=== PATIENT | female | born 1980 | race African-American/Black ===

== ENCOUNTER 2023-03-16 08:35 | Emergency (ER) | payer OTHER, SELFPAY ==
[2023-03-16 08:39] VITALS: BP 180/102; PULSE 84; RESP 18; TEMP 36.7; O2SAT 98; BMI 24.8
--- NOTE | 2023-03-16 08:47 | ECG_ITS ---
[facility] Test Date: 2023-03-16 Pat Name: DANIELA HART Department: Room: - Gender: Female [employer]: : 1980 Requested By: LOR CARRENO Order Number: [id number] Reading MD: MELVIN MANZANO Measurements Intervals [place] Rate: 95 P: 49 WI: 138 QRS: 35 QRSD: 78 T: 54 QT: 366 QTc: 418 Interpretive Statements 1100 Sinus rhythm 0102 ARTIFACT PRESENT 9150 abnormal ECG No previous ECG available for comparison Electronically Signed On 03-17-2023 7:13:52 EDT by MELVIN MANZANO
--- NOTE | 2023-03-16 08:50 | ED.GENADUL1 ---
HPI - General Adult General Chief complaint: Recheck/Abnormal Lab/Rx Stated complaint: RECHECK HCT & HGB- POSS. TRANSFUSION/MOUTH PAIN Time Seen by Provider: 03/16/23 08:39 Source: patient Mode of arrival: walk-in History of Present Illness HPI narrative: 43-year-old female presents for low blood count. She had her blood count checked two days ago and it was 6.9 and she comes in today to be assessed. She has a history of anemia and had Blood transfusion about two months ago. It's been due to heavy uterine bleeding, fibroids. She had been recommended to have surgical procedure but didn't get it done because of alcoholism and she's in an alcohol treatment center now. She is not dizzy or lightheaded but feels that she looks a little bit pale. Related Data Home Medications Medication Instructions Recorded Confirmed chlordiazepoxide HCl 25 mg capsule 25 mg PO Q12H 03/16/23 03/16/23 cyclobenzaprine 5 mg tablet 5 mg PO Q12H 03/16/23 03/16/23 dicyclomine 10 mg capsule 10 mg PO DAILY 03/16/23 03/16/23 folic acid 1 mg tablet 1 mg PO DAILY 03/16/23 03/16/23 hydroxyzine pamoate 25 mg capsule 25 mg PO Q8H PRN itching 03/16/23 03/16/23 levetiracetam 250 mg tablet 250 mg PO Q12H 03/16/23 03/16/23 levetiracetam 500 mg tablet 500 mg PO Q12H 03/16/23 03/16/23 nicotine (polacrilex) 4 mg gum 4 mg PO Q8H PRN nicotine cravings 03/16/23 03/16/23 omeprazole 20 mg capsule,delayed 20 mg PO DAILY 03/16/23 03/16/23 release ondansetron 8 mg disintegrating 8 mg PO Q8H PRN nausea and vomiting 03/16/23 03/16/23 tablet prazosin 1 mg capsule 1 mg PO .HS PRN PTSD 03/16/23 03/16/23 Previous Rx's Medication Instructions Recorded ferrous sulfate 325 mg (65 mg 325 mg PO BID #60 tabs 03/16/23 iron) tablet (Feosol) penicillin V potassium 250 mg 250 mg PO QID 10 days #40 tabs 03/16/23 tablet Allergies Allergy/AdvReac Type Severity Reaction Status Date / Time No Known Drug Allergies Allergy Verified 03/16/23 08:44 Review of Systems ROS Narrative Nurses note and vital signs reviewed and patient is not hypoxic. General: The patient appears well and in no apparent distress. Patient is resting comfortably on cart. Skin: Warm, dry. There is no rash noted. Head: Normocephalic, atraumatic Eye: Normal conjunctiva, no drainage, conjunctiva pale Ears, Nose, Mouth, and Throat: oral mucosa is moist. Nares patent. Cardiovascular: Regular Rate and Rhythm Respiratory: Patient is in no distress, no accessory muscle use, lungs are clear to auscultation, no wheezing, rales or rhonchi Back: non-tender GI: soft and nontender Musculoskeletal: The patient has no evidence of calf tenderness, no pitting edema, symmetrical pulses noted bilaterally Neurological: A&O, normal speech Psychiatric: Cooperative Exam Constitutional Vital Signs, click to edit/add: Last Vital Signs Temp 98.1 F 03/16/23 08:39 Pulse 84 03/16/23 08:39 Resp 18 03/16/23 08:39 BP 180/102 H 03/16/23 08:39 Pulse Ox 98 03/16/23 08:39 O2 Del Method Room Air 03/16/23 08:39 Course Vital Signs Vital signs: Vital Signs Temperature 98.1 F 03/16/23 08:39 Pulse Rate 84 03/16/23 08:39 Respiratory Rate 18 03/16/23 08:39 Blood Pressure 180/102 H 03/16/23 08:39 Pulse Oximetry 98 03/16/23 08:39 Oxygen Delivery Method Room Air 03/16/23 08:39 Temperature 98.1 F 03/16/23 08:39 Pulse Rate 84 03/16/23 08:39 Respiratory Rate 18 03/16/23 08:39 Blood Pressure 180/102 H 03/16/23 08:39 Pulse Oximetry 98 03/16/23 08:39 Oxygen Delivery Method Room Air 03/16/23 08:39 Medical Decision Making MDM Narrative Medical decision making narrative: hemoglobin today is 7.3. She's not actively bleeding. She'll be discharged on iron. She also requested a prescription for her because she has ongoing gum issues. Treatment diagnosis and follow-up were discussed with the patient. Differential Diagnosis Differential Diagnosis: anemia, menorrhagia, miscarriage Lab Data Lab results reviewed: Yes I reviewed the patient's lab results Labs: Lab Results 03/16/23 Range/Units 08:56 WBC 8.8 (4.0-11.0) 10^3/uL RBC 3.57 L (4.20-5.40) 10^6/uL Hgb 7.3 L (12.0-16.0) g/dL Hct 25.8 L (36.0-48.0) % MCV 72.3 L (81.0-99.0) fL MCH 20.4 L (26.7-34.0) pg MCHC 28.3 L (29.9-35.2) g/dL RDW 21.5 H (11.0-15.0) % Plt Count 570 H (150-450) 10^3/uL MPV 9.5 (9.5-13.5) fL Neut % (Auto) 67.3 (43.0-75.0) % Lymph % (Auto) 18.7 L (20.5-60.0) % [place] % (Auto) 11.9 (1.7-12.0) % Eos % (Auto) 0.8 L (0.9-7.0) % Baso % (Auto) 1.0 (0.2-2.0) % Neut # (Auto) 5.9 (1.4-6.5) 10^3/uL Lymph # (Auto) 1.7 (1.2-3.8) 10^3/uL [place] # (Auto) 1.1 H (0.3-0.8) 10^3/uL Eos # (Auto) 0.1 (0.0-0.7) 10^3/uL Baso # (Auto) 0.1 (0.0-0.1) 10^3/uL Abs Immat Gran (auto) 0.03 (0.00-0.03) 10^3/uL Imm/Tot Granulo (auto) 0.3 (0.0-0.5) % Sodium 136 (136-145) mmol/L Potassium 4.0 (3.5-5.1) mmol/L Chloride 102 (98-107) mmol/L Carbon Dioxide 27.7 (21.0-32.0) mmol/L Anion Gap 10.3 BUN 11.0 (7.0-18.0) mg/dL Creatinine 0.61 (0.55-1.02) mg/dL Est GFR ( Amer) >60 (>=60) Est GFR (Non-Af Amer) >60 (>=60) BUN/Creatinine Ratio 18.0 Glucose 99 (74-106) mg/dL Calcium 8.7 (8.5-10.1) mg/dL HCG, Quant <1 mIU/mL Discharge Plan Discharge Chief Complaint: Recheck/Abnormal Lab/Rx Clinical Impression: Anemia Patient Disposition: Home, Self-Care Time of Disposition Decision: 10:15 Condition: Good Mode of Transportation: Private Vehicle Prescriptions / Home Meds: New ferrous sulfate [Feosol] 325 mg (65 mg iron) tablet 325 mg PO BID Qty: 60 0RF penicillin V potassium 250 mg tablet 250 mg PO QID 10 Days Qty: 40 0RF No Action chlordiazepoxide HCl 25 mg capsule 25 mg PO Q12H levetiracetam 500 mg tablet 500 mg PO Q12H prazosin 1 mg capsule 1 mg PO .HS PRN (Reason: PTSD) ondansetron 8 mg tablet,disintegrating 8 mg PO Q8H PRN (Reason: nausea and vomiting) levetiracetam 250 mg tablet 250 mg PO Q12H nicotine (polacrilex) 4 mg gum 4 mg PO Q8H PRN (Reason: nicotine cravings) omeprazole 20 mg capsule,delayed release(DR/EC) 20 mg PO DAILY folic acid 1 mg tablet 1 mg PO DAILY dicyclomine 10 mg capsule 10 mg PO DAILY hydroxyzine pamoate 25 mg capsule 25 mg PO Q8H PRN (Reason: itching) cyclobenzaprine 5 mg tablet 5 mg PO Q12H Instructions: Anemia (ED) Stand Alone Forms: Portal Instructions Referrals: LOR CARRENO [Primary Care Provider] - 1 week
[2023-03-16 09:10] LABS: Basophils Absolute Auto 0.1 10^3/uL (0.0-0.1); Eosinophils Absolute Auto 0.1 10^3/uL (0.0-0.7); Eosinophils Percent Auto 0.8 % (0.9-7.0); Hematocrit 25.8 % (36.0-48.0); Hemoglobin 7.3 g/dL (12.0-16.0); Immature Granulocytes Abs Auto 0.03 10^3/uL (0.00-0.03); Immature Granulocytes Pct Auto 0.3 % (0.0-0.5); Lymphocytes Absolute Auto 1.7 10^3/uL (1.2-3.8); Lymphocytes Percent Auto 18.7 % (20.5-60.0); Mean Corpuscular HGB Conc 28.3 g/dL (29.9-35.2); Mean Corpuscular Hemoglobin 20.4 pg (26.7-34.0); Mean Corpuscular Volume 72.3 fL (81.0-99.0); Mean Platelet Volume 9.5 fL (9.5-13.5); Monocytes Absolute Auto 1.1 10^3/uL (0.3-0.8); Monocytes Percent Auto 11.9 % (1.7-12.0); Neutrophils Absolute Auto 5.9 10^3/uL (1.4-6.5); Neutrophils Percent Auto 67.3 % (43.0-75.0); Platelet Count 570 10^3/uL (150-450); Red Blood Count 3.57 10^6/uL (4.20-5.40); Red Cell Distribution Width 21.5 % (11.0-15.0); White Blood Count 8.8 10^3/uL (4.0-11.0)
[2023-03-16 09:17] LABS: Anion Gap 10.3; Calcium 8.7 mg/dL (8.5-10.1); Carbon Dioxide 27.7 mmol/L (21.0-32.0); Chloride 102 mmol/L (98-107); Estimated GFR (African America >60 (>=60); Estimated GFR (Non-African Ame >60 (>=60); Glucose 99 mg/dL (74-106); Sodium 136 mmol/L (136-145)
[2023-03-16 09:37] LABS: HCG Quantitative <1 mIU/mL
== END 2023-03-16 10:34 | disposition home or self-care (01) ==
PROVIDERS: Emergency Provider Emergency Medicine; PCP Family Medicine
DX: D64.9 Anemia, unspecified (principal); F10.20 Alcohol dependence, uncomplicated
CPT/HCPCS: 36415; 80048; 84702; 84703; 85025; 93005; 99284